=== PATIENT | female | born 2000 | race Caucasian/White ===

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

== ENCOUNTER 2022-07-30 22:46 | Emergency (ER) | payer OTHER, MEDICAID ==
[~2022-07-30] VITALS: Ht 162.5 cm; Wt 105.2 kg
[2022-07-30 23:47] LABS: BILIRUBIN,URINE NEGATIVE (NEGATIVE); CLARITY,URINE CLEAR; COLOR,URINE YELLOW; GLUCOSE, URINE (UA) NEGATIVE (NEGATIVE); KETONES,URINE NEGATIVE (NEGATIVE); LEUKOCYTE ESTERASE ,URINE NEGATIVE (NEGATIVE); NITRITE,URINE NEGATIVE (NEGATIVE); PH,URINE 6.5 (5-9); PROTEIN,URINE NEGATIVE (NEGATIVE)
[2022-07-30 23:50] LABS: BASOPHILS # (AUTO) 0.1 10^3/uL (0.0-0.1); BASOPHILS % (AUTO) 1 % (0-10); EOSINOPHILS # (AUTO) 0.1 10^3/uL (0.0-0.3); EOSINOPHILS % (AUTO) 1 % (0-10); HEMATOCRIT 40 % (35-52); HEMOGLOBIN 13.8 g/dL (11.5-16.0); LYMPHOCYTES # (AUTO) 3.4 10^3/uL (1.0-4.0); LYMPHOCYTES % (AUTO) 31 % (12-44); MEAN CORPUSCULAR HEMOGLOBIN 30 pg (25-34); MEAN CORPUSCULAR HGB CONC 34 g/dL (32-36); MEAN CORPUSCULAR VOLUME 88 fL (80-99); MEAN PLATELET VOLUME 9.6 fL (9.0-12.2); MONOCYTES # (AUTO) 0.7 10^3/uL (0.0-1.0); MONOCYTES % (AUTO) 6 % (0-12); NEUTROPHILS # (AUTO) 6.7 10^3/uL (1.8-7.8); NEUTROPHILS % (AUTO) 61 % (42-75); PLATELET COUNT 343 10^3/uL (130-400)
[2022-07-30 23:57] LABS: BACTERIA,URINE NEGATIVE /HPF
[2022-07-31 00:06] LABS: AMPHETAMINE SCREEN, URINE NEGATIVE (NEGATIVE); BARBITURATE SCREEN URINE NEGATIVE (NEGATIVE); BENZODIAZEPINES SCREEN URINE NEGATIVE (NEGATIVE); CANNABINOID SCREEN, URINE NEGATIVE (NEGATIVE); COCAINE SCREEN URINE NEGATIVE (NEGATIVE); METHADONE STAT NEGATIVE (NEGATIVE); OPIATE SCREEN URINE NEGATIVE (NEGATIVE); OXYCODONE STAT NEGATIVE (NEGATIVE); PROPOXYPHENE STAT NEGATIVE (NEGATIVE); TRICYCLIC ANTIDEPRESSANTS SCRE NEGATIVE (NEGATIVE)
[2022-07-31 00:13] LABS: ALBUMIN 4.9 GM/DL (3.2-4.5); CHLORIDE 104 MMOL/L (98-107); POTASSIUM 3.3 MMOL/L (3.6-5.0); SODIUM 141 MMOL/L (135-145)
[2022-07-31 00:15] LABS: GLUCOSE 89 MG/DL (70-105); TOTAL PROTEIN 8.2 GM/DL (6.4-8.2)
[2022-07-31 00:16] LABS: CARBON DIOXIDE 26 MMOL/L (21-32)
[2022-07-31 00:17] LABS: BILIRUBIN,TOTAL 1.2 MG/DL (0.1-1.0)
[2022-07-31 00:19] LABS: ALKALINE PHOSPHATASE 82 U/L (40-136); CREATININE SERUM 0.85 MG/DL (0.60-1.30); GFR ESTIMATED 101
[2022-07-31 00:20] LABS: BUN/CREATININE RATIO 12
[2022-07-31 00:22] LABS: ALANINE AMINOTRANSFERASE 15 U/L (0-55); MAGNESIUM 1.9 MG/DL (1.6-2.4)
[2022-07-31 00:42] LABS: TSH (THYROID ANALYZER) 3.69 UIU/ML (0.35-4.94)
--- NOTE | 2022-07-31 00:59 | ED General ---
General Chief Complaint: Dizziness/Syncope Stated Complaint: SYNCOPAL EPISODE/MIGRAINE Nursing Triage Note: Patient states she had a syncopal episode around 1530 today at work. Patient states she felt her heart "fluttering" before her syncopal episode. Patient states she has a Hx. of POTS. Patient denies any chest pain, N/V, or shortness of breath. Patient c/o migraine headache that started around [id number] this afternoon. Patient states this is a normal migraine headache for her. Patient denies taking any medication at home for her migraine headache. Patient denies any visual changes with her migraine headache. Neuro's intact. Allergies and Home Medications Allergies Coded Allergies: prednisone (Verified Allergy, Unknown, 11/12/18) Patient Home Medication List Cyclobenzaprine HCl (Cyclobenzaprine HCl) 10 Mg Tablet, 5-10 MG PO Q8H PRN for SPASMS Prescribed by: SHAWNEE QUINTEROS on 12/27/192003 Promethazine HCl (Promethazine Tablet) 25 Mg Tablet, 25 MG PO Q6H PRN for NAUSEA/VOMITING Prescribed by: SHAWNEE QUINTEROS on 01/01/212224 Propranolol HCl (Propranolol HCl) 20 Mg Tablet, (Reported) Entered as Reported by: BE SHARMA on 04/01/19 1310 Sumatriptan Succinate (Imitrex) 4 Mg/0.5 Ml Cartridge, Unknown Dose SQ, (Reported) Entered as Reported by: BE SHARMA on 04/01/19 1310 Past Kyjeobk-Ihwgwn-Lzzdzn Hx Patient Social History Tobacco Use?: No Use of E-Cig and/or Vaping dev: No Substance use?: No Alcohol Use?: No Immunizations Up To Date Tetanus Booster (TDap): Less than 5yrs PED Vaccines UTD: Yes Influenza Vaccine Up-to-Date: No; Not Current First/Initial COVID19 Vaccinat: NONE Second COVID19 Vaccination Scot: NONE Third COVID19 Vaccination Date: NONE Seasonal Allergies Seasonal Allergies: No Past Medical History Surgery/Hospitalization HX: POTS Surgeries: Yes (BLADDER STRETCHED) Respiratory: No Cardiac: Yes (OROSCO) Neurological: Yes Headaches /Migraines Last Menstrual Period: July 15, 2022 Reproductive Disorders: No Genitourinary: No Gastrointestinal: No Musculoskeletal: No Endocrine: No HEENT: No Cancer: No Psychosocial: No Integumentary: No Blood Disorders: No Family Medical History No Pertinent Family Hx Physical Exam Vital Signs Vital Signs - First Documented 07/30/22 22:58 Temp 36.8 Pulse 100 Resp 14 B/P (MAP) 148/106 (120) Pulse Ox 99 O2 Delivery Room Air Capillary Refill : Height, Weight, BMI Height: 5'5.00" Weight: 180lbs. 0oz. 81.071446hq; 39.00 BMI Method:Stated Progress/Results/Core Measures Suspected Sepsis SIRS Temperature: Pulse: 100 Respiratory Rate: 14 Laboratory Tests 07/30/22 23:38: White Blood Count 11.0 Blood Pressure 148 /106 Mean: 120 Laboratory Tests 07/30/22 23:38: Creatinine 0.85, Platelet Count 343, Total Bilirubin 1.2H Results/Orders Lab Results Laboratory Tests Test 07/30/22 23:33 07/30/22 23:38 Range/Units Urine Color YELLOW Urine Clarity CLEAR Urine pH 6.5 5-9 Urine Specific [place] 1.010 L 1.016-1.022 Urine Protein NEGATIVE NEGATIVE Urine Glucose (UA) NEGATIVE NEGATIVE Urine Ketones NEGATIVE NEGATIVE Urine Nitrite NEGATIVE NEGATIVE Urine Bilirubin NEGATIVE NEGATIVE Urine Urobilinogen 1.0 < = 1.0 MG/DL Urine Leukocyte Esterase NEGATIVE NEGATIVE Urine RBC (Auto) TRACE-I H NEGATIVE Urine RBC NONE /HPF Urine WBC NONE /HPF Urine Crystals NONE /LPF Urine Bacteria NEGATIVE /HPF Urine Casts NONE /LPF Urine Mucus NEGATIVE /LPF Urine Culture Indicated NO Urine Opiates Screen NEGATIVE NEGATIVE Urine Oxycodone Screen NEGATIVE NEGATIVE Urine Methadone Screen NEGATIVE NEGATIVE Urine Propoxyphene Screen NEGATIVE NEGATIVE Urine Barbiturates Screen NEGATIVE NEGATIVE Ur Tricyclic Antidepressants Screen NEGATIVE NEGATIVE Urine Phencyclidine Screen NEGATIVE NEGATIVE Urine Amphetamines Screen NEGATIVE NEGATIVE Urine Methamphetamines Screen NEGATIVE NEGATIVE Urine Benzodiazepines Screen NEGATIVE NEGATIVE Urine Cocaine Screen NEGATIVE NEGATIVE Urine Cannabinoids Screen NEGATIVE NEGATIVE White Blood Count 11.0 4.3-11.0 10^3/uL Red Blood Count 4.61 3.80-5.11 10^6/uL Hemoglobin 13.8 11.5-16.0 g/dL Hematocrit 40 35-52 % Mean Corpuscular Volume 88 80-99 fL Mean Corpuscular Hemoglobin 30 25-34 pg Mean Corpuscular Hemoglobin Concent 34 32-36 g/dL Red Cell Distribution Width 11.7 10.0-14.5 % Platelet Count 343 130-400 10^3/uL Mean Platelet Volume 9.6 9.0-12.2 fL Immature Granulocyte % (Auto) 0 % Neutrophils (%) (Auto) 61 42-75 % Lymphocytes (%) (Auto) 31 12-44 % Monocytes (%) (Auto) 6 0-12 % Eosinophils (%) (Auto) 1 0-10 % Basophils (%) (Auto) 1 0-10 % Neutrophils # (Auto) 6.7 1.8-7.8 10^3/uL Lymphocytes # (Auto) 3.4 1.0-4.0 10^3/uL Monocytes # (Auto) 0.7 0.0-1.0 10^3/uL Eosinophils # (Auto) 0.1 0.0-0.3 10^3/uL Basophils # (Auto) 0.1 0.0-0.1 10^3/uL Immature Granulocyte # (Auto) 0.0 0.0-0.1 10^3/uL Sodium Level 141 135-145 MMOL/L Potassium Level 3.3 L 3.6-5.0 MMOL/L Chloride Level 104 98-107 MMOL/L Carbon Dioxide Level 26 21-32 MMOL/L Anion Gap 11 5-14 MMOL/L Blood Urea Nitrogen 10 7-18 MG/DL Creatinine 0.85 0.60-1.30 MG/DL Estimat Glomerular Filtration Rate 101 BUN/Creatinine Ratio 12 Glucose Level 89 70-105 MG/DL Calcium Level 10.0 8.5-10.1 MG/DL Corrected Calcium 8.5-10.1 MG/DL Magnesium Level 1.9 1.6-2.4 MG/DL Total Bilirubin 1.2 H 0.1-1.0 MG/DL Aspartate Amino Transf (AST/SGOT) 25 5-34 U/L Alanine Aminotransferase (ALT/SGPT) 15 0-55 U/L Alkaline Phosphatase 82 40-136 U/L Total Protein 8.2 6.4-8.2 GM/DL Albumin 4.9 H 3.2-4.5 GM/DL TSH [place] Testing 3.69 0.35-4.94 UIU/ML Serum Test, Qualitative NEGATIVE NEGATIVE My Orders Orders - MICHELLE TA DO Ed Iv/Invasive Line Start (07/30/22 23:19) Ekg Tracing (07/30/22 23:19) Monitor-Rhythm Ecg Trace Only (07/30/22 23:19) Ct Head Wo-R/O Stroke (07/30/22 23:19) Cbc With Automated Diff (07/30/22 23:19) Comprehensive Metabolic Panel (07/30/22 23:19) Drug Screen Stat (Urine) (07/30/22 23:19) Hcg,Qualitative Serum (07/30/22 23:19) Magnesium (07/30/22 23:19) Thyroid Analyzer (07/30/22 23:19) Ua Culture If Indicated (07/30/22 23:19) Chest 1 View, Ap/Pa Only (07/30/22 23:19) Vital Signs/I&O 07/30/22 22:58 Temp 36.8 Pulse 100 Resp 14 B/P (MAP) 148/106 (120) Pulse Ox 99 O2 Delivery Room Air Capillary Refill : Blood Pressure Mean: 120 Departure Impression Primary Impression: Syncope Additional Impressions: Palpitations Migraine headache Disposition: HOME, SELF-CARE Condition: Improved Departure-Patient Inst. Decision time for Depature: 00:50 Referrals: [facility] (PCP) Primary Care Physician Patient Instructions: Palpitations ED, Syncope (Fainting) (DC), Migraines in adults Add. Discharge Instructions: HOME, REST LOTS OF FLUIDS--EQUAL AMOUNTS OF WATER AND GATORADE--DRINK ENOUGH SO YOU ARE URINATING EVERY 2-3 HOURS NO CAFFEINE OR ENERGY DRINKS OR OVER THE COUNTER COLD MEDICATIONS YOU MAY TAKE TYLENOL ANd MOTRIN IN ADDITION TO YOUR REGULAR MIGRAINE MEDICATIONS FOLLOW UP WITH DR. RAZO NEXT WEEK FOR FURTHER CARE--CALL ON Monday TO SCHEDULE AN APPOINTMENT RETURN TO ER IF ANY OF YOUR SYMPTOMS RETURN All discharge instructions reviewed with patient and/or family. Voiced understanding. MICHELLE TA DO Jul 31, 2022 00:59
[2022-07-31 01:04] VITALS: BP 114/80
--- NOTE | 2022-07-31 07:07 | Diagnostic Imaging Report ---
PROCEDURE: CT head wo r/o stroke. TECHNIQUE: Multiple contiguous axial images were obtained through the brain without the use of intravenous contrast. Auto Exposure Controls were utilized during the CT exam to meet ALARA standards for radiation dose reduction. INDICATION: Syncopal episode. COMPARISON is made with prior head CT from 07/24/2017. The ventricles and sulci are within normal limits. No sulcal effacement or midline shift is identified. No acute intra-axial or extra-axial hemorrhage is detected. Cisterns are patent. There is opacification of the right maxillary sinus with a moderate amount of mucosal thickening in the left maxillary sinus. IMPRESSION: 1. No acute intracranial process detected. 2. Paranasal sinus disease. Dictated by: Dictated on workstation # [id number]
--- NOTE | 2022-07-31 07:27 | Diagnostic Imaging Report ---
EXAMINATION: Chest 1 view HISTORY: Syncopal episode. Palpitations. COMPARISON: 03/12/2020. FINDINGS: The lung volumes are normal. No focal consolidation is seen. No large pleural effusion or pneumothorax is seen. The cardiomediastinal silhouette is normal in size and contour. No acute osseous abnormality is seen. IMPRESSION: 1. No acute pleuroparenchymal process. Dictated by: Dictated on workstation # [id number]
== END 2022-07-31 01:04 | disposition home or self-care (01) ==
LOC: EDUNIT# 22:46 → ER 22:49
DX: G43.909 Migraine, unspecified, not intractable, without status migrainosus (principal); R55 Syncope and collapse; R00.2 Palpitations; Z28.310 Unvaccinated for COVID-19
CPT/HCPCS: 36415; 70450; 71045; 80053; 80306; 81000; 83735; 84443; 84703; 85025; 93005; 93041